=== PATIENT | male | born 1935 | race Caucasian/White ===

== ENCOUNTER 2018-06-07 09:32 | Emergency (ER) | payer MEDICARE, OTHER ==
[2018-06-07] MEDS ORDERED: Sodium Chloride 0.9% 10 ML Syringe FLUSH PRN (10:08)
[2018-06-07] MEDS ORDERED: cefTRIAXone 1 GM Vial IVPUSH ONE (10:08)
[2018-06-07 11:17] LABS: CHLORIDE,CL 100 mmol/L (98-107); SODIUM,NA 137 mmol/L (136-145)
[2018-06-07 11:20] LABS: ANION GAP 9.5 mmol/L (10-20)
[2018-06-07] MEDS ORDERED: Acetaminophen 325 MG Tab PO ONE (13:11)
[2018-06-07 13:18] VITALS: BP 151/92
--- NOTE | 2018-06-07 13:18 | EDM.PDOC ---
ED HPI GENERAL MEDICAL PROBLEM - General Chief Complaint: Possible Sepsis Stated Complaint: ER VISIT Time Seen by Provider: 06/07/18 09:40 Source of Information: Reports: Detention Records History Limitations: Reports: Altered Mental Status - History of Present Illness INITIAL COMMENTS - FREE TEXT/NARRATIVE: Patient being treated for aspiration pneumonia for the last 1-2 weeks with augmentin, supplemented by Levaquin. Levaquin was discontinued due to increased confusion. He was then switched to amoxicillin 500 mg TID. This was done on Friday. Brought in to the ER from the [facility] with reports of fever and confusion. Very hard of hearing. Dementia. Unable to answer history questions. Onset: Gradual - Related Data Allergies Allergy/AdvReac Type Severity Reaction Status Date / Time nickel [Nickel] Allergy Cannot Verified 06/07/18 09:45 Remember Home Meds: Home Meds Cetirizine [ZyrTEC] 10 mg PO DAILY 03/14/14 [History] Melatonin 3 mg PO DAILY 03/14/14 [History] Potassium Chloride [Klor-Con] 20 meq PO BID 03/14/14 [History] Sertraline [Zoloft] 50 mg PO DAILY 03/14/14 [History] Simvastatin [Zocor] 20 mg PO BEDTIME 03/14/14 [History] Thiamine [Vitamin B-1] 100 mg PO BEDTIME 03/14/14 [History] Vitamin B Complex 1 each PO DAILY 03/14/14 [History] amLODIPine [Norvasc] 5 mg PO DAILY 03/14/14 [History] Acetaminophen [Tylenol Extra Strength] 2 tab PO Q4H PRN 04/04/16 [History] Triamcinolone Acetonide [Triamcinolone Acetonide 0.1% Crm] 1 applic TOP TID PRN 04/04/16 [History] ALPRAZolam [Alprazolam] 0.25 mg PO DAILY 06/07/18 [History] Acetaminophen 650 mg PO Q4H PRN 06/07/18 [History] Acetaminophen [Tylenol] 650 mg PO BID 06/07/18 [History] Amoxicillin 500 mg PO TID 06/07/18 [History] Bisacodyl 5 mg PO Q72H PRN 06/07/18 [History] Clotrimazole/Betamethasone Dip [Lotrisone Cream] 1 applic TOP Q8H PRN 06/07/18 [ History] Dextran 70/Hypromellose [Artificial Tears] 1 drop OP BID 06/07/18 [History] Enalapril [Vasotec] 10 mg PO DAILY 06/07/18 [History] Furosemide [Lasix] 20 mg PO DAILY 06/07/18 [History] Ibuprofen 400 mg PO Q6H PRN 06/07/18 [History] MO/Pet,Wh/Phenylephrine/Shk Lv [Preparation H Oint] 1 applic RECTAL BID PRN [History] Nystatin 1 applic TOP BID PRN 06/07/18 [History] Witch Charlene [Tucks] 1 pad RECTAL ASDIRECTED 06/07/18 [History] hydrOXYzine HCl [Atarax] 10 mg PO Q6H PRN 06/07/18 [History] risperiDONE [Risperdal] 0.5 mg PO DAILY 06/07/18 [History] Past Medical History - Past Health History Medical/Surgical History: Denies Medical/Surgical History HEENT History: Reports: Otitis Media Cardiovascular History: Reports: High Cholesterol, Hypertension Respiratory History: Reports: None Gastrointestinal History: Reports: Other (See Below) Other Gastrointestinal History: umbilical hernia Musculoskeletal History: Reports: Other (See Below) Other Musculoskeletal History: weakness, pain Psychiatric History: Reports: Addiction, Anxiety, Dementia Endocrine/Metabolic History: Reports: Obesity/BMI 30+ Hematologic History: Reports: None Immunologic History: Reports: None Oncologic (Cancer) History: Reports: None Dermatologic History: Reports: Other (See Below) Other Dermatologic History: dermititis - Past Surgical History Head Surgeries/Procedures: Reports: None HEENT Surgical History: Reports: Tonsillectomy Musculoskeletal Surgical History: Reports: Other (See Below) Oncologic Surgical History: Reports: None Social & Family History - Family History Family Medical History: Noncontributory - Tobacco Use Smoking Status *Q: Unknown Ever Smoked - Living Situation & Occupation Living situation: Reports: Assisted Living ED ROS GENERAL - Review of Systems Review Of Systems: Unable To Obtain ED EXAM, GENERAL - Physical Exam Exam: See Below Exam Limited By: Altered Mental Status General Appearance: Alert, WD/WN, Mild Distress Eye Exam: Bilateral Eye: EOMI, Normal Inspection, PERRL Ears: Normal TMs Nose: Normal Inspection, Normal Mucosa, No Blood Throat/Mouth: Normal Inspection, Normal Lips, Normal Teeth, Normal Gums, Normal Oropharynx, Normal Voice, No Airway Compromise Head: Atraumatic, Normocephalic Neck: Normal Inspection, Supple, Non-Tender, Full Range of Motion Respiratory/Chest: No Respiratory Distress, Rales (bilateral) Cardiovascular: Irregularly Irregular (atrial fib) Peripheral Pulses: 2+: Posterior Tibial (L), Posterior Tibial (R), Dorsalis Pedis (L), Dorsalis Pedis (R) GI/Abdominal: Normal Bowel Sounds, Soft, Non-Tender, No Organomegaly, No Distention, No Abnormal Bruit, No Mass Neurological: Confused. No: Alert, Oriented Skin Exam: Warm, Dry, Intact, Normal Color, No Rash Lymphatic: No Adenopathy Course - Vital Signs Last Recorded V/S: Last Vital Signs Temp 38.8 C H 06/07/18 13:18 Pulse 99 06/07/18 13:18 Resp 20 06/07/18 13:18 BP 151/92 H 06/07/18 13:18 Pulse Ox 90 L 06/07/18 13:18 - Orders/Labs/Meds Orders: Active Orders 24 hr Category Date Time Status EKG Documentation Completion [RC] STAT Care 06/07/18 10:08 Active Chest 1V Frontal [CR] Stat Exams 06/07/18 10:08 Taken CULTURE BLOOD [BC] Stat Lab 06/07/18 10:19 Results CULTURE BLOOD [BC] Stat Lab 06/07/18 10:24 Results UA W/MICROSCOPIC [URIN] Stat Lab 06/07/18 10:30 Ordered Sodium Chloride 0.9% [Saline Flush] Med 06/07/18 10:08 Active 10 ml FLUSH ASDIRECTED PRN Blood Culture x2 Reflex Set [OM.PC] Stat Oth 06/07/18 10:08 Ordered Saline Lock Insert [OM.PC] Routine Oth 06/07/18 10:08 Ordered Medication Orders Sodium Chloride (Saline Flush) 10 ml FLUSH ASDIRECTED PRN PRN Reason: Keep Vein Open Labs: Laboratory Tests 06/07/18 06/07/18 06/07/18 Range/Units 10:19 10:19 10:19 WBC 9.8 (4.0-10.0) x10^3/uL RBC 4.90 (4.5-6.0) x10^6/uL Hgb 14.9 (14.0-18.0) g/dL Hct 44.5 (40.0-52.0) % MCV 90.8 (78.0-93.0) fL MCH 30.4 (26.0-32.0) pg MCHC 33.5 (32.0-36.0) g/dL RDW Coeff of Valente 14.2 (10.0-15.0) % Plt Count 214 (130-400) x10^3/uL Neut % (Auto) 78.0 (50.0-80.0) % Lymph % (Auto) 10.5 L (25.0-50.0) % Desha % (Auto) 9.3 (2.0-11.0) % Eos % (Auto) 1.9 (0.0-4.0) % Baso % (Auto) 0.3 (0.2-1.2) % PT 10.6 (9.6-11.4) SEC INR 1.0 L (2.0-3.5) Sodium 137 (136-145) mmol/L Potassium 3.5 (3.5-5.1) mmol/L Chloride 100 (98-107) mmol/L Carbon Dioxide 31 (21-32) mmol/L Anion Gap 9.5 L (10-20) mmol/L BUN 13 (7-18) mg/dL Creatinine 1.3 (0.70-1.30) mg/dL Est Cr Clr Drug Dosing TNP Estimated GFR (MDRD) 53 Glucose 109 H (74-106) mg/dL Lactic Acid (0.4-2.0) mmol/L Calcium 8.4 L (8.5-10.1) mg/dL Corrected Calcium 8.72 (8.5-10.1) mg/dL Total Bilirubin 0.6 (0.2-1.0) mg/dL AST 14 L (15-37) U/L ALT 24 (16-63) U/L Alkaline Phosphatase 60 (46-116) U/L Creatine Kinase 114 (39-308) U/L Troponin I 0.017 (<=0.056) ng/mL C-Reactive Protein < 0.2 (<=0.9) mg/dL NT-Pro-B Natriuret Pep 1027 H (<=450) pg/mL Total Protein 7.3 (6.4-8.2) g/dL Albumin 3.6 (3.4-5.0) g/dL Globulin 3.7 Albumin/Globulin Ratio 0.97 Urine Color (YELLOW) Urine Appearance (CLEAR) Urine pH (5.0-8.0) Ur Specific [place] Urine Protein (NEGATIVE) mg/dL Urine Glucose (UA) (NEGATIVE) mg/dL Urine Ketones (NEGATIVE) mg/dL Urine Occult Blood (NEGATIVE) Urine Nitrite (NEGATIVE) Urine Bilirubin (NEGATIVE) Urine Urobilinogen (0.2) EU/dL Ur Leukocyte Esterase (NEGATIVE) Urine RBC (NOT SEEN) /HPF Urine WBC (NOT SEEN) /HPF Ur Squamous Epith Cells (NEGATIVE) /HPF Urine Bacteria (NEGATIVE) /HPF Urine Mucus (NEGATIVE) /LPF 06/07/18 06/07/18 Range/Units 10:19 10:30 WBC (4.0-10.0) x10^3/uL RBC (4.5-6.0) x10^6/uL Hgb (14.0-18.0) g/dL Hct (40.0-52.0) % MCV (78.0-93.0) fL MCH (26.0-32.0) pg MCHC (32.0-36.0) g/dL RDW Coeff of Valente (10.0-15.0) % Plt Count (130-400) x10^3/uL Neut % (Auto) (50.0-80.0) % Lymph % (Auto) (25.0-50.0) % Desha % (Auto) (2.0-11.0) % Eos % (Auto) (0.0-4.0) % Baso % (Auto) (0.2-1.2) % PT (9.6-11.4) SEC INR (2.0-3.5) Sodium (136-145) mmol/L Potassium (3.5-5.1) mmol/L Chloride (98-107) mmol/L Carbon Dioxide (21-32) mmol/L Anion Gap (10-20) mmol/L BUN (7-18) mg/dL Creatinine (0.70-1.30) mg/dL Est Cr Clr Drug Dosing Estimated GFR (MDRD) Glucose (74-106) mg/dL Lactic Acid 3.3 H* (0.4-2.0) mmol/L Calcium (8.5-10.1) mg/dL Corrected Calcium (8.5-10.1) mg/dL Total Bilirubin (0.2-1.0) mg/dL AST (15-37) U/L ALT (16-63) U/L Alkaline Phosphatase (46-116) U/L Creatine Kinase (39-308) U/L Troponin I (<=0.056) ng/mL C-Reactive Protein (<=0.9) mg/dL NT-Pro-B Natriuret Pep (<=450) pg/mL Total Protein (6.4-8.2) g/dL Albumin (3.4-5.0) g/dL Globulin Albumin/Globulin Ratio Urine Color Yellow (YELLOW) Urine Appearance Clear (CLEAR) Urine pH 7.0 (5.0-8.0) Ur Specific [place] 1.015 Urine Protein Negative (NEGATIVE) mg/dL Urine Glucose (UA) Negative (NEGATIVE) mg/dL Urine Ketones Negative (NEGATIVE) mg/dL Urine Occult Blood Trace-intact H (NEGATIVE) Urine Nitrite Negative (NEGATIVE) Urine Bilirubin Negative (NEGATIVE) Urine Urobilinogen 0.2 (0.2) EU/dL Ur Leukocyte Esterase Negative (NEGATIVE) Urine RBC 0-5 (NOT SEEN) /HPF Urine WBC Not seen (NOT SEEN) /HPF Ur Squamous Epith Cells Not seen (NEGATIVE) /HPF Urine Bacteria Not seen (NEGATIVE) /HPF Urine Mucus Not seen (NEGATIVE) /LPF Meds: Medications Generic Name Dose Route Start Last Admin Trade Name Freq PRN Reason Stop Dose Admin Sodium Chloride 10 ml 06/07/18 10:08 Saline Flush FLUSH ASDIRECTED PRN Keep Vein Open Discontinued Medications Generic Name Dose Route Start Last Admin Trade Name Freq PRN Reason Stop Dose Admin Acetaminophen 650 mg 06/07/18 13:11 06/07/18 13:15 Tylenol PO 06/07/18 13:12 650 mg NOW ONE Administration Ceftriaxone Sodium 1 gm 06/07/18 10:08 06/07/18 10:36 Rocephin IVPUSH 06/07/18 10:09 1 gm STAT ONE Administration Departure - Departure Time of Disposition: 13:26 Disposition: DC/Tfer to Acute Hospital 02 Condition: Fair Clinical Impression: Aspiration pneumonia - Discharge Information *PRESCRIPTION DRUG MONITORING PROGRAM REVIEWED*: Not Applicable *COPY OF PRESCRIPTION DRUG MONITORING REPORT IN PATIENT MARILYN: Not Applicable Referrals: Elisabet Eng DO [Primary Care Provider] - Forms: ED Department Discharge, Interfacility Transfer EMTALA, ED Department Discharge ED Communication - ED Communication Date/Time Date: 06/07/18 Time Called: 12:30 - Discussed Case With (1) Discussed Case With (1): Admitting Provider (Dr. Matias called at [facility] and given report. Care accepted. Await ambulance transfer) - Problem List & Annotations (1) Aspiration pneumonia SNOMED Code(s): 923164013 Code(s): J69.0 - PNEUMONITIS DUE TO INHALATION OF FOOD AND VOMIT Status: Acute Current Visit: Yes - My Orders Last 24 Hours: My Active Orders 06/07/18 10:08 EKG Documentation Completion [RC] STAT Chest 1V Frontal [CR] Stat Sodium Chloride 0.9% [Saline Flush] 10 ml FLUSH ASDIRECTED PRN Blood Culture x2 Reflex Set [OM.PC] Stat Saline Lock Insert [OM.PC] Routine 06/07/18 10:19 CULTURE BLOOD [BC] Stat 06/07/18 10:24 CULTURE BLOOD [BC] Stat 06/07/18 10:30 UA W/MICROSCOPIC [URIN] Stat - Assessment/Plan Last 24 Hours: My Active Orders 06/07/18 10:08 EKG Documentation Completion [RC] STAT Chest 1V Frontal [CR] Stat Sodium Chloride 0.9% [Saline Flush] 10 ml FLUSH ASDIRECTED PRN Blood Culture x2 Reflex Set [OM.PC] Stat Saline Lock Insert [OM.PC] Routine 06/07/18 10:19 CULTURE BLOOD [BC] Stat 06/07/18 10:24 CULTURE BLOOD [BC] Stat 06/07/18 10:30 UA W/MICROSCOPIC [URIN] Stat
== END 2018-06-07 13:35 | disposition short-term general hospital (02) ==
LOC: VM.ED 09:32
DX: J69.0 Pneumonitis due to inhalation of food and vomit (principal); E78.00 Pure hypercholesterolemia, unspecified; I10 Essential (primary) hypertension; Z91.048 Other nonmedicinal substance allergy status; Z79.899 Other long term (current) drug therapy
CPT/HCPCS: 36415; 71045; 80053; 81001; 82550; 83605; 83880; 84484; 85025; 85610; 86140; 87040; 93005; 96374; 99285; A9270; J0696

== ENCOUNTER 2018-07-27 14:42 | Emergency (ER) | payer MEDICARE, OTHER ==
[2018-07-27 15:07] VITALS: BP 109/70
[2018-07-27] MEDS: risperiDONE 1 MG Tab PO ONE (15:55)
[2018-07-27 16:08] LABS: CHLORIDE,CL 105 mmol/L (98-107); SODIUM,NA 139 mmol/L (136-145)
[2018-07-27 16:09] LABS: ANION GAP 5.9 mmol/L (10-20)
--- NOTE | 2018-07-27 22:10 | EDM.PDOC ---
ED HPI GENERAL MEDICAL PROBLEM - General Chief Complaint: General Stated Complaint: COUGHING/RESPIRATORY,DIZZY Time Seen by Provider: 07/27/18 14:50 Source of Information: Reports: Patient History Limitations: Reports: No Limitations - History of Present Illness INITIAL COMMENTS - FREE TEXT/NARRATIVE: Pt. presents to ER from [facility] via EMS. Staff at detention states that the pt. has been acting aggressively toward staff. He has a history of dementia. He has not recently been ill. He was started on Alprazolam on 07-20 and since that time, he has been less steady on his feel and complains of dizziness. Staff state that he has been coughing as well, and they are concerned he has aspiration pneumonia. Pt. denies any fever or chills. He denies any complaints at all, stating he doesn't think he needs to be in the ER and requests to go back to detention. Location: Reports: Chest, Generalized - Related Data Allergies Allergy/AdvReac Type Severity Reaction Status Date / Time nickel [Nickel] Allergy Cannot Verified 07/27/18 14:58 Remember Home Meds: Home Meds Cetirizine [ZyrTEC] 5 mg PO DAILY 03/14/14 [History] Melatonin 3 mg PO BEDTIME 03/14/14 [History] Potassium Chloride [Klor-Con] 20 meq PO BID 03/14/14 [History] Sertraline [Zoloft] 50 mg PO DAILY 03/14/14 [History] Simvastatin [Zocor] 20 mg PO BEDTIME 03/14/14 [History] Thiamine [Vitamin B-1] 100 mg PO BEDTIME 03/14/14 [History] Vitamin B Complex 1 tab PO DAILY 03/14/14 [History] amLODIPine [Norvasc] 5 mg PO DAILY 03/14/14 [History] ALPRAZolam [Alprazolam] 0.5 mg PO TID 06/07/18 [History] Acetaminophen 650 mg PO Q4H PRN 06/07/18 [History] Acetaminophen [Tylenol] 650 mg PO BID 06/07/18 [History] Dextran 70/Hypromellose [Artificial Tears] 1 drop OP BID 06/07/18 [History] Enalapril [Vasotec] 10 mg PO DAILY 06/07/18 [History] Furosemide [Lasix] 20 mg PO DAILY 06/07/18 [History] Stacy Chang [Tucks] 1 pad RECTAL ASDIRECTED 06/07/18 [History] risperiDONE [Risperdal] 0.5 mg PO DAILY 06/07/18 [History] ALPRAZolam [Xanax] 0.5 mg PO Q4H PRN 07/27/18 [History] Folic Acid 1 mg PO DAILY 07/27/18 [History] Past Medical History - Past Health History Medical/Surgical History: Denies Medical/Surgical History HEENT History: Reports: Otitis Media, Other (See Below) Other HEENT History: dysphagia Cardiovascular History: Reports: High Cholesterol, Hypertension Respiratory History: Reports: None Gastrointestinal History: Reports: Other (See Below) Other Gastrointestinal History: umbilical hernia Musculoskeletal History: Reports: Other (See Below) Other Musculoskeletal History: weakness, pain Psychiatric History: Reports: Addiction, Anxiety, Dementia, Depression, Other ( See Below) Other Psychiatric History: insomnia Endocrine/Metabolic History: Reports: Obesity/BMI 30+ Hematologic History: Reports: None Immunologic History: Reports: None Oncologic (Cancer) History: Reports: None Dermatologic History: Reports: Other (See Below) Other Dermatologic History: dermatitis - Past Surgical History Head Surgeries/Procedures: Reports: None HEENT Surgical History: Reports: Tonsillectomy Musculoskeletal Surgical History: Reports: Other (See Below) Oncologic Surgical History: Reports: None Social & Family History - Family History Family Medical History: Noncontributory - Tobacco Use Smoking Status *Q: Unknown Ever Smoked - Recreational Drug Use Recreational Drug Use: No - Living Situation & Occupation Living situation: Reports: Assisted Living ED ROS GENERAL - Review of Systems Review Of Systems: ROS reveals no pertinent complaints other than HPI. ED EXAM, GENERAL - Physical Exam Exam: See Below Exam Limited By: Altered Mental Status General Appearance: Alert, WD/WN, No Apparent Distress Ears: Normal External Exam, Normal Canal, Hearing Grossly Normal, Normal TMs Ear Exam: Bilateral Ear: Auricle Normal, Canal Normal, TM normal Nose: Normal Inspection, Normal Mucosa, No Blood Throat/Mouth: Normal Inspection, Normal Lips, Normal Teeth, Normal Gums, Normal Oropharynx, Normal Voice, No Airway Compromise Head: Atraumatic, Normocephalic Neck: Normal Inspection, Supple, Non-Tender, Full Range of Motion Respiratory/Chest: No Respiratory Distress, Lungs Clear, Normal Breath Sounds, No Accessory Muscle Use, Chest Non-Tender Cardiovascular: Normal Peripheral Pulses, Regular Rate, Rhythm, No Edema, No Gallop, No JVD, No Murmur, No Rub Peripheral Pulses: 4+: Radial (L), Radial (R) GI/Abdominal: Normal Bowel Sounds, Soft, Non-Tender, No Organomegaly, No Distention, No Abnormal Bruit, No Mass (Male) Exam: Deferred Rectal (Males) Exam: Deferred Back Exam: Normal Inspection, Full Range of Motion, NT Extremities: Normal Inspection, Normal Range of Motion, Non-Tender, Normal Capillary Refill, No Pedal Edema Neurological: CN II-XII Intact, Normal Gait, Normal Reflexes, No Motor/Sensory Deficits, Confused, Disoriented, Slow to Respond, Other (this is normal for patient for the most part) Psychiatric: Normal Affect, Anxious Skin Exam: Warm, Dry, Intact, Normal Color, No Rash Lymphatic: No Adenopathy Course - Vital Signs Last Recorded V/S: Last Vital Signs Temp 36.6 C 07/27/18 14:42 Pulse 80 07/27/18 14:42 Resp 18 07/27/18 14:42 BP 109/70 07/27/18 14:42 Pulse Ox 93 L 07/27/18 14:42 - Orders/Labs/Meds Orders: Active Orders 24 hr Category Date Time Status Chest 1V Frontal [CR] Stat Exams 07/27/18 15:04 Taken UA W/MICROSCOPIC [URIN] Stat Lab 07/27/18 15:35 Ordered Labs: Laboratory Tests 07/27/18 07/27/18 07/27/18 Range/Units 15:35 15:45 15:45 WBC 6.0 (4.0-10.0) x10^3/uL RBC 4.66 (4.5-6.0) x10^6/uL Hgb 14.3 (14.0-18.0) g/dL Hct 42.7 (40.0-52.0) % MCV 91.6 (78.0-93.0) fL MCH 30.7 (26.0-32.0) pg MCHC 33.5 (32.0-36.0) g/dL RDW Coeff of Valente 15.2 H (10.0-15.0) % Plt Count 215 (130-400) x10^3/uL Neut % (Auto) 57.0 (50.0-80.0) % Lymph % (Auto) 25.7 (25.0-50.0) % [place] % (Auto) 12.0 H (2.0-11.0) % Eos % (Auto) 4.8 H (0.0-4.0) % Baso % (Auto) 0.5 (0.2-1.2) % Sodium 139 (136-145) mmol/L Potassium 3.9 (3.5-5.1) mmol/L Chloride 105 (98-107) mmol/L Carbon Dioxide 32 (21-32) mmol/L Anion Gap 5.9 L (10-20) mmol/L BUN 11 (7-18) mg/dL Creatinine 1.1 (0.70-1.30) mg/dL Est Cr Clr Drug Dosing TNP Estimated GFR (MDRD) > 60 Glucose 109 H (74-106) mg/dL Calcium 9.0 (8.5-10.1) mg/dL Corrected Calcium 9.56 (8.5-10.1) mg/dL Total Bilirubin 0.5 (0.2-1.0) mg/dL AST 20 (15-37) U/L ALT 36 (16-63) U/L Alkaline Phosphatase 70 (46-116) U/L Total Protein 7.1 (6.4-8.2) g/dL Albumin 3.3 L (3.4-5.0) g/dL Globulin 3.8 Albumin/Globulin Ratio 0.87 Urine Color Yellow (YELLOW) Urine Appearance Slightly cloudy H (CLEAR) Urine pH 6.0 (5.0-8.0) Ur Specific [place] 1.020 Urine Protein Negative (NEGATIVE) mg/dL Urine Glucose (UA) Negative (NEGATIVE) mg/dL Urine Ketones Trace H (NEGATIVE) mg/dL Urine Occult Blood Negative (NEGATIVE) Urine Nitrite Negative (NEGATIVE) Urine Bilirubin Small H (NEGATIVE) Urine Urobilinogen 0.2 (0.2) EU/dL Ur Leukocyte Esterase Negative (NEGATIVE) Urine RBC 0-5 (NOT SEEN) /HPF Urine WBC 0-5 (NOT SEEN) /HPF Ur Squamous Epith Cells Not seen (NEGATIVE) /HPF Urine Bacteria Few H (NEGATIVE) /HPF Urine Mucus Many H (NEGATIVE) /LPF Meds: Medications Discontinued Medications Generic Name Dose Route Start Last Admin Trade Name Lior PRN Reason Stop Dose Admin Risperidone 1 mg 07/27/18 15:44 07/27/18 15:55 Risperidal PO 07/27/18 15:45 1 mg ONETIME ONE Administration Departure - Departure Time of Disposition: 16:41 Disposition: DC/Tfer to [facility] Condition: Good Clinical Impression: Dementia - Discharge Information Referrals: Elisabet Eng DO [Primary Care Provider] - Forms: ED Department Discharge Additional Instructions: Increase Risperdal to 1mg daily. He may need to increase this again after a few days. He was given a dose in ER. Follow-up in clinic in 7-10 days, sooner if still having behaviors. Continue with all of his other medications. - My Orders Last 24 Hours: My Active Orders 07/27/18 15:04 Chest 1V Frontal [CR] Stat 07/27/18 15:35 UA W/MICROSCOPIC [URIN] Stat - Assessment/Plan Last 24 Hours: My Active Orders 07/27/18 15:04 Chest 1V Frontal [CR] Stat 07/27/18 15:35 UA W/MICROSCOPIC [URIN] Stat Plan: Increase Risperdal to 1mg daily. He may need to increase this again after a few days. He was given a dose in ER. Follow-up in clinic in 7-10 days, sooner if still having behaviors. Continue with all of his other medications.
== END 2018-07-27 16:40 ==
LOC: VM.ED 14:42
DX: F03.90 Unspecified dementia, unspecified severity, without behavioral disturbance, psychotic disturbance, mood disturbance, and anxiety (principal); Z88.8 Allergy status to other drugs, medicaments and biological substances; Z79.899 Other long term (current) drug therapy; I10 Essential (primary) hypertension; E66.9 Obesity, unspecified
CPT/HCPCS: 36415; 71045; 80053; 81001; 85025; 99283-GF; 99285; A9270-GY